=== PATIENT | female | born 1960 | race Caucasian/White ===

== ENCOUNTER 2021-10-15 23:20 | Emergency (ER) | payer OTHER, MEDICAID ==
[~2021-10-15] VITALS: Ht 162.6 cm; Wt 68.0 kg
[2021-10-15 23:20] VITALS: BP 129/67
--- NOTE | 2021-10-15 23:26 | NUR ---
PT [facility] BED 2
[2021-10-16 00:42] LABS: BASOPHILS # (AUTO) 0.1 K/uL (0.00-0.22); EOSINOPHILS # (AUTO) 0.3 K/uL (0-0.4); EOSINOPHILS % (AUTO) 2.1 % (0.0-4.0); HEMATOCRIT 40.7 % (36-48); HEMOGLOBIN 13.6 g/dL (12.0-16.0); LYMPHOCYTES # (AUTO) 2.7 K/uL (2.5-16.5); LYMPHOCYTES % (AUTO) 22.2 % (20.5-51.1); MEAN CORPUSCULAR HEMOGLOBIN 31 pg (27-31); MEAN CORPUSCULAR HGB CONC 33 g/dL (33-37); MEAN CORPUSCULAR VOLUME 91.7 fL (80-94); MONOCYTES # (AUTO) 0.8 K/uL (0.8-1.0); MONOCYTES % (AUTO) 6.1 % (1.7-9.3); NEUTROPHILS # (AUTO) 8.5 K/uL (1.8-7.7); NEUTROPHILS % (AUTO) 68.6 % (42.2-75.2); PLATELET COUNT (AUTO) 301 K/uL (140-450); RED BLOOD CELL COUNT(AUTO) 4.44 MIL/uL (4.20-5.40); RED CELL DISTRIBUTION WIDTH 12.7 % (11.6-13.7); WHITE BLOOD COUNT (AUTO) 12.3 K/uL (4.8-10.8)
[2021-10-16] MEDS ORDERED: FAMOTIDINE 20 MG/2 ML VIAL IVP ONE (00:50)
[2021-10-16] MEDS ORDERED: ONDANSETRON 4 MG/2 ML VIAL IVP ONE (00:50)
[2021-10-16 00:55] LABS: ALBUMIN 3.5 g/dL (3.4-5.0); ANION GAP 13.5 (8-16); CARBON DIOXIDE 26.2 mmol/L (21-32); CREATININE 0.6 mg/dL (0.6-1.3); POTASSIUM 3.7 mmol/L (3.5-5.1); TOTAL BILIRUBIN 0.3 mg/dL (0.0-1.0)
[2021-10-16 01:00] LABS: LIPASE 129 U/L (73-393)
[2021-10-16] MEDS ORDERED: FAMO-90 PO (03:13)
--- NOTE | 2021-10-16 03:20 | NUR ---
Spoke with Desiree Sanchez via telephone at , [employer] ord[employer] manager of [facility], facility which patient resides at. [employer] Desiree Sanchez stated she "is ok with patient being transported back by [employer]," and Desiree Sanchez "will have someone waitint for her when [employer] arrives at [facility].
[2021-10-16 03:42] VITALS: BP 125/80
--- NOTE | 2021-10-16 03:44 | NUR ---
Patient discharged with v/s stable. Written and verbal after care instructions given and explained. Patient verbalized understanding. Ambulatory with assist to transportation. All questions addressed prior to discharge. [facility] and [facility] Ms. Sanchez verbalized underestanding, no further questions, see note. Advised to follow up with PMD. Addendum: 10/16/21 at 0354 by [employer] Patient discharged with v/s stable. Written and verbal after care instructions given and explained. Patient verbalized understanding. Ambulatory with assist to transportation. Transportation verbalized understanding of destination address, no further questions. All questions addressed prior to discharge. [facility] of [facility] transportation and [facility] Ms. Sanchez verbalized underestanding, no further questions, see note. Advised to follow up with PMD.
== END 2021-10-16 03:50 | disposition home or self-care (01) ==
LOC: MED 23:20
DX: K21.9 Gastro-esophageal reflux disease without esophagitis (principal); I10 Essential (primary) hypertension; F79 Unspecified intellectual disabilities; F25.1 Schizoaffective disorder, depressive type; G80.9 Cerebral palsy, unspecified
CPT/HCPCS: 36415; 71045; 80053; 83690; 83880; 84484; 85025; 85379; 93005; 96374; 96375; 99285; J2405; J3490; Q0092